=== PATIENT | male | born 1995 | race Caucasian/White ===

== ENCOUNTER 2020-09-27 15:30 | Outpatient (RCR) | payer BC, MEDICAID, SELFPAY ==
[2020-09-13 14:45] VITALS: BP 125/70; PULSE 96; RESP 16; TEMP 37; BMI 25.9
--- NOTE | 2020-09-13 16:29 | PCM.WC.HP ---
(1) Non-healing wound of right lower extremity Status: Acute Code(s): S81.801A - Unspecified open wound, right lower leg, initial encounter (2) ADHD Status: Acute Code(s): F90.9 - Attention-deficit hyperactivity disorder, unspecified type (3) Insomnia Status: Acute Code(s): G47.00 - Insomnia, unspecified (4) Autism Status: Acute Code(s): F84.0 - Autistic disorder History of Present Illness Date of Service: 09/13/20 Chief Complaint: Non-healing wounds of the R posterior thigh and the R posterior distal calf from a dog bite on 08/22/20. History of Wound: He was bitten by a pit bull on 08/22/20 and sustained wounds on the R posterior thigh and the R posterior calf. They were sutured but, the wound over the calf dehisced and has become infected. They are currently doing wet-to-dry dressings. He was seen by his primary care physician yesterday who started him on antibiotics that include Bactrim and clindamycin. He denies fever/chills/redness of the wound. His mother states that there has been increased yellow discharge recently. He had a culture of the wound taken yesterday at his PCP's office prior to starting the antibiotics. Past Medical History Surgical History: noncontributory Allergies/Adverse Reactions: Allergies red dye Adverse Reaction (Verified 09/13/20 15:18) PT UNSURE OF REACTION Home Medications: Ambulatory Orders Medication Instructions Recorded Ascorbic Acid [Vitamin C] 500 mg PO DAILY 09/13/20 Cholecalciferol (Vitamin D3) 5,000 unit PO DAILY 09/13/20 [Vitamin D3] Clindamycin [Cleocin] 450 mg PO TID 09/13/20 Cyanocobalamin [Vitamin B12] 100 mcg PO DAILY@0800 09/13/20 Dexmethylphenidate HCl [Focalin] 5 mg PO BID 09/13/20 Loratadine 10 mg PO DAILY 09/13/20 Smz/Tmp Ds [Bactrim Ds] 1 tab PO BID 09/13/20 Lives: With Family - his mother dresses the wound with W-D dressing BID Smoking Status: Never smoker Tobacco Use: Non-smoker Alcohol: None Drugs: None Review of Systems Constitutional: Denies: Chills, Fever Musculoskeletal: Reports: Muscle pain - The pain in the Left LE from the wounds is controlled adequately with Tylenol and Motrin. Skin: Reports: Wounds - Puncture wounds in the posterior thigh and the posterior R calf due to dog bite 08/22/20 Hematologic/ Lymphatic: Denies: Hx of blood clot - Physical Exam Vital Signs Temp Pulse Resp BP 98.6 F 96 16 125/70 H 09/13/20 14:45 09/13/20 14:45 09/13/20 14:45 09/13/20 14:45 General: Alert, Oriented x3, Cooperative, No apparent distress, Well developed, Well nourished Extremities: No edema, Capillary Refill Less than 3 Seconds, No Calf Tenderness, Peripheral Pulses Normal, - - The wounds on the L posterior thigh are puncture wounds and most have a small black scab with no surrounding edema and no DC. There is some edema of the tissue surrounding the area that was traumatized. There are 2 small superficial openings in the skin of the thigh with >60% slough Addt'l Wound Findings: There is a opening in the skin over the R posterior calf proximal to the ankle that measures 4.8 X .8 by 0.5. It has no significant rae-incisional erythema and the wound has no purulent DC. There is serous drainage. There is no odor. The wound margins are rolled under. There is beefy red granulation tissue present in the wound base along with about 25% slough. There is no undermining and no tunnelling. The slough was debrided with a curette. There is mild bleeding. Wound Measurements and Assessment WC - Nurse 1 - General Ulcer Measurement Start: 09/13/20 13:33 Freq: Status: Active Protocol: Activity Type Activity Date Activity User E-Sign Co-Sign Detail Recorded Client Recorded Date Recorded By Document 09/13/20 14:45 [facility] [id number] 09/13/20 15:05 BM 09/13/20 14:45 Wound Center Nurse 1 [Ulcer Assessment] #3- R MED POST LE -Combined with other wound No -Current Size (cm) - Length 0.5 -Current Size (cm) - Width 4.8 -Current Size (cm) - Depth 0.8 -Total Square Cm 2.40 -Date of Last Picture (Recall this 09/13/20 field) -Photo Taken Yes -Epithelialization None Present -Tunneling No -Undermining/Tunneling No -Circular Undermining No -Exudate Amt Small -Exudate Type Serosanguineous -Wound Margin Distinct, Outline Attached -Granulation Amt Large (67-100%) -Granulation Quality Red -Slough/Fibrin Yes -Necrosis Amt Small (1-33%) -Necrotic Tissue Type Adherent Slough -Texture (Rae-wound Skin Appearance) Assessed, Scarring -Moisture (Rae-wound Skin Appearance Assessed ) -Color (Rae-wound Skin Appearance) Assessed -Temperature (Rae-wound Skin No Abnormality Appearance) (Pt Warm) -Tenderness on Palpation (Rae-wound No Skin Appearance) -Ulcer Cleansing Rinsed/ Irrigated with Saline -Foul Odor after Cleansing No -Anesthetic Used 4% Lidocaine Solution #2- R MED UPPER POST THIGH CLUSTER -Combined with other wound No -Current Size (cm) - Length 7 -Current Size (cm) - Width 8 -Current Size (cm) - Depth 0.1 -Total Square Cm 56 -Date of Last Picture (Recall this 09/13/20 field) -Photo Taken Yes -Epithelialization None Present -Tunneling No -Undermining/Tunneling No -Circular Undermining No -Exudate Amt Small -Exudate Type Serosanguineous -Wound Margin Distinct, Outline Attached -Granulation Amt Small (1-33%) -Granulation Quality Red -Slough/Fibrin Yes -Necrosis Amt Large (67-100%) -Necrotic Tissue Type Adherent Slough -Texture (Rae-wound Skin Appearance) Assessed, Scarring -Moisture (Rae-wound Skin Appearance Assessed ) -Color (Rae-wound Skin Appearance) Assessed -Temperature (Rae-wound Skin No Abnormality Appearance) (Pt Warm) -Tenderness on Palpation (Rae-wound No Skin Appearance) -Ulcer Cleansing SOAPY WATER -Foul Odor after Cleansing No -Anesthetic Used 4% Lidocaine Solution #1- R LAT UPPER POST THIGH CLUSTER -Combined with other wound No -Current Size (cm) - Length 3.5 -Current Size (cm) - Width 4 -Current Size (cm) - Depth 0.1 -Total Square Cm 14.0 -Date of Last Picture (Recall this 09/13/20 field) -Photo Taken Yes -Epithelialization None Present -Tunneling No -Undermining/Tunneling No -Circular Undermining No -Exudate Amt Small -Exudate Type Serosanguineous -Wound Margin Distinct, Outline Attached -Granulation Amt Large (67-100%) -Granulation Quality Red -Slough/Fibrin Yes -Necrosis Amt Small (1-33%) -Necrotic Tissue Type Adherent Slough -Texture (Rae-wound Skin Appearance) Assessed, Scarring -Moisture (Rae-wound Skin Appearance Assessed ) -Color (Rae-wound Skin Appearance) Assessed -Temperature (Rae-wound Skin No Abnormality Appearance) (Pt Warm) -Tenderness on Palpation (Rae-wound No Skin Appearance) -Ulcer Cleansing Rinsed/ Irrigated with Saline -Foul Odor after Cleansing No -Anesthetic Used 4% Lidocaine Solution WC - Nurse 3 - General Ulcer D/C NN Start: 09/13/20 13:33 Freq: Status: Active Protocol: Activity Type Activity Date Activity User E-Sign Co-Sign Detail Recorded Client Recorded Date Recorded By Document 09/13/20 15:41 [facility] [id number] 09/13/20 15:43 [facility] 09/13/20 15:41 Wound Care Nurse 3 [Wound Dressing] #3- R MED POST LE -Ulcer Cleansing Rinsed/ Irrigated with Saline -Foul Odor after Cleansing No -Primary Dressing Applied Other -Other Dressing MOIST TO DRY -Primary Dressing Covered/Secured Dry Gauze & with Roll Gauze, Secured with Tape,Other -Other Covering ABD #2- R MED UPPER POST THIGH CLUSTER -Ulcer Cleansing Rinsed/ Irrigated with Saline -Foul Odor after Cleansing No -Primary Dressing Applied Other -Other Dressing MOIST TOT DRY -Primary Dressing Covered/Secured Dry Gauze & with Roll Gauze, Secured with Tape,Other -Other Covering ABD #1- R LAT UPPER POST THIGH CLUSTER -Ulcer Cleansing Rinsed/ Irrigated with Saline -Foul Odor after Cleansing No -Primary Dressing Applied Other -Other Dressing MOIST TO DRY -Primary Dressing Covered/Secured Dry Gauze & with Roll Gauze, Secured with Tape,Other -Other Covering ABD [Post Procedure Tolerated] -Treatment Response Procedure Tolerated Well Pain Scale: 0-10 Numeric [Pain] -Is Patient Pain Free? Yes WC - Visit Discharge [Visit Discharge Information] -Discharge Condition Stable -Ambulatory Status Ambulatory -Transportation Private Auto -Accompanied by Debridement Note Post-Debridement Measurements/Treatment WC - Nurse 3 - General Ulcer D/C NN Start: 09/13/20 13:33 Freq: Status: Active Protocol: Activity Type Activity Date Activity User E-Sign Co-Sign Detail Recorded Client Recorded Date Recorded By Document 09/13/20 15:41 [facility] [id number] 09/13/20 15:43 [facility] 09/13/20 15:41 Wound Care Nurse 3 #3- R MED POST LE -Ulcer Cleansing Rinsed/ Irrigated with Saline -Foul Odor after Cleansing No -Primary Dressing Applied Other -Other Dressing MOIST TO DRY -Primary Dressing Covered/Secured with Dry Gauze & Roll Gauze, Secured with Tape,Other -Other Covering ABD #2- R MED UPPER POST THIGH CLUSTER -Ulcer Cleansing Rinsed/ Irrigated with Saline -Foul Odor after Cleansing No -Primary Dressing Applied Other -Other Dressing MOIST TOT DRY -Primary Dressing Covered/Secured with Dry Gauze & Roll Gauze, Secured with Tape,Other -Other Covering ABD #1- R LAT UPPER POST THIGH CLUSTER -Ulcer Cleansing Rinsed/ Irrigated with Saline -Foul Odor after Cleansing No -Primary Dressing Applied Other -Other Dressing MOIST TO DRY -Primary Dressing Covered/Secured with Dry Gauze & Roll Gauze, Secured with Tape,Other -Other Covering ABD Treatment Response Procedure Tolerated Well Pain Scale: 0-10 Numeric Is Patient Pain Free? Yes WC - Visit Discharge Discharge Condition Stable Ambulatory Status Ambulatory Transportation Private Auto Accompanied by Wound debrided: R posterior thigh - 2 small superficial wounds Laterality: Right Wound Grade/Stage: into the subcutaneous tissue. No tendon/ligament exposed Type of Debridement: Selective debridement Anesthesia Used: 4% Lidocaine Solution Depth: Down to and including healthy tissue, in the subcutaneous layer Percentage of wound debrided: 100 Instrument Used: 5mm curette Severity: Limited To Skin Breakdown Amount of bleeding with debridement: Mild Bleeding Controlled with: Pressure Patient tolerated procedure well Operative Diagnosis: non-healing wounds due to dog bite - Additional Wound Wound debrided: R posterior calf wound proximal to the ankle Laterality: Right Wound Grade/Stage: wound extends into the fat layer Type of Debridement: Selective debridement Anesthesia Used: 4% Lidocaine Solution Depth: Down to and including healthy tissue, in the subcutaneous layer Percentage of wound debrided: 100 Instrument Used: 5mm curette Severity: Fat Layer Exposed Amount of bleeding with debridement: Mild Bleeding Controlled with: Pressure, Compression and gauze Patient tolerated procedure: Patient tolerated procedure well Operative Diagnosis: non-healing wound due to dog bite on 08/22/20 with subsequent dehiscence Assessment/Plan Assessment: 1. Non- healing wounds of the R posterior thigh and the R posterior calf sustained when a pitbull bite him on 08/22/20. The wound of the calf was sutured in the ER and he was placed on antibiotics.m The wound subsequently dehisced and has been non-healing. 2. superficial infection of the open wound over the calf. Started on antibiotics by PCP and the wound was cultured on 09/12/20. 3. superficial non-healing puncture wounds (2) over the posterior thigh. other puncture wounds are healing. Plan: 1. COntinue W-D dressings for now. 2. Obtain the results of the cultures done yesterday at the PCP office. 3. Continue Clindamycin and Bactrim RX's by PCP. 4. RTC in 1 week and considerdebriding the edges that are rolled under to promote epithelialization and consider transitioning to a alginate containing collagen if infection has resolved. Office Visits / Consults: [id number] OV L3 New
[2020-09-20 14:39] VITALS: BP 117/70; PULSE 104; RESP 18; TEMP 36.6; BMI 25.9
--- NOTE | 2020-09-20 15:29 | PCM.WC.PN ---
(1) Non-healing wound of right lower extremity Status: Acute Code(s): S81.801A - Unspecified open wound, right lower leg, initial encounter (2) ADHD Status: Chronic Code(s): F90.9 - Attention-deficit hyperactivity disorder, unspecified type (3) Insomnia Status: Chronic Code(s): G47.00 - Insomnia, unspecified (4) Autism Status: Chronic Code(s): F84.0 - Autistic disorder (5) Cellulitis Status: Resolved Qualifiers: Site of cellulitis: extremity Site of cellulitis of extremity: lower extremity Laterality: right Qualified Code(s): L03.115 - Cellulitis of right lower limb Code(s): L03.90 - Cellulitis, unspecified Comment: culture reportedly + for pseudomonas. We did not receive the culture repost from PCP. (6) Folliculitis Status: Acute Code(s): L73.9 - Follicular disorder, unspecified Type of Wound Date of Service: 09/20/20 Chief Complaint: Non-healing wounds of the R posterior thigh and the R posterior distal calf from a dog bite on 08/22/20. History of Wound: He was bitten by a pit bull on 08/22/20 and sustained wounds on the R posterior thigh and the R posterior calf. They were sutured but, the wound over the calf dehisced and has become infected. They are currently doing wet-to-dry dressings. He was seen by his primary care physician yesterday who started him on antibiotics that include Bactrim and clindamycin. He denies fever/chills/redness of the wound. His mother states that there has been increased yellow discharge recently. He had a culture of the wound taken yesterday at his PCP's office prior to starting the antibiotics. Progress of Wound: Immanuel denies F/C/S. No N/V/D related to the antibiotic. Currently being dressed with W to D dressing. Dimensions of the wound R distal LE have significantly decreased, ryan in the depth and the width. He denies more than mild pain. The scabs on the posterior of the R thigh are still present....there are multiple. There are 2 small wounds that are open but very superficial. - Physical Exam Vital Signs Temp Pulse Resp BP 97.8 F 104 H 18 117/70 09/20/20 14:39 09/20/20 14:39 09/20/20 14:39 09/20/20 14:39 General: Alert, Oriented x3, Cooperative, No apparent distress, Well developed, Well nourished Extremities: Peripheral Pulses Normal Skin: - - he has multiple small punctate red pustules at the site of hair follicles extending from the ankles to the groinn BL. There are a very few with white heads. Wound Measurements and Assessment WC - Nurse 1 - General Ulcer Measurement Start: 09/13/20 13:33 Freq: Status: Active Protocol: Activity Type Activity Date Activity User E-Sign Co-Sign Detail Recorded Client Recorded Date Recorded By Document 09/20/20 14:39 DL [id number] 09/20/20 14:52 DL 09/20/20 14:39 Wound Center Nurse 1 [Ulcer Assessment] #3- R MED POST LE -Current Size (cm) - Length 9 -Current Size (cm) - Width 3.6 -Current Size (cm) - Depth 0.3 -Total Square Cm 32.4 -Photo Taken No -Exudate Amt Small -Exudate Type Serosanguineous -Wound Margin Distinct, Outline Attached -Granulation Amt Large (67-100%) -Granulation Quality Red -Necrosis Amt None Present (0 %) -Structure Exposed N/A -Texture (Laura-wound Skin Appearance) Scarring -Moisture (Laura-wound Skin Appearance No Abnormality ) -Color (Laura-wound Skin Appearance) No Abnormality -Temperature (Laura-wound Skin No Abnormality Appearance) (Pt Warm) -Tenderness on Palpation (Laura-wound No Skin Appearance) -Ulcer Cleansing Rinsed/ Irrigated with Saline -Foul Odor after Cleansing No -Anesthetic Used 4% Lidocaine Solution #2- R MED UPPER POST THIGH CLUSTER -Current Size (cm) - Length 2 -Current Size (cm) - Width 2 -Current Size (cm) - Depth 0.1 -Total Square Cm 4 -Photo Taken No -Exudate Amt None Present -Wound Margin Thickened -Granulation Amt Small (1-33%) -Granulation Quality [place] -Necrosis Amt Small (1-33%) -Necrotic Tissue Type Eschar -Structure Exposed N/A -Texture (Laura-wound Skin Appearance) Scarring -Moisture (Laura-wound Skin Appearance No Abnormality ) -Color (Laura-wound Skin Appearance) No Abnormality -Temperature (Laura-wound Skin No Abnormality Appearance) (Pt Warm) -Tenderness on Palpation (Laura-wound No Skin Appearance) -Ulcer Cleansing Rinsed/ Irrigated with Saline -Foul Odor after Cleansing No -Anesthetic Used 4% Lidocaine Solution #1- R LAT UPPER POST THIGH CLUSTER -Current Size (cm) - Length 3.3 -Current Size (cm) - Width 2.5 -Current Size (cm) - Depth 0.1 -Total Square Cm 8.25 -Photo Taken No -Exudate Amt None Present -Wound Margin Thickened -Granulation Amt Small (1-33%) -Granulation Quality [place] -Necrosis Amt Small (1-33%) -Necrotic Tissue Type Eschar -Structure Exposed N/A -Texture (Laura-wound Skin Appearance) Scarring -Moisture (Laura-wound Skin Appearance Dry/Scaly ) -Color ([place]-wound Skin Appearance) No Abnormality -Temperature (Laura-wound Skin No Abnormality Appearance) (Pt Warm) -Tenderness on Palpation (Laura-wound No Skin Appearance) -Ulcer Cleansing Rinsed/ Irrigated with Saline -Foul Odor after Cleansing No -Anesthetic Used 4% Lidocaine Solution - Nurse 3 - General Ulcer D/C NN Start: 09/13/20 13:33 Freq: Status: Active Protocol: Activity Type Activity Date Activity User E-Sign Co-Sign Detail Recorded Client Recorded Date Recorded By Document 09/20/20 15:14 [facility] [id number] 09/20/20 15:16 [facility] 09/20/20 15:14 Wound Care Nurse 3 [Wound Dressing] #3- R MED POST LE -Ulcer Cleansing Rinsed/ Irrigated with Saline -Foul Odor after Cleansing No -Primary Dressing Applied Promogran -Primary Dressing Covered/Secured Dry Gauze & with Roll Gauze, Secured with Tape -Promogran 1 #2- R MED UPPER POST THIGH CLUSTER -Primary Dressing Applied Other -Other Dressing LOTA #1- R LAT UPPER POST THIGH CLUSTER -Primary Dressing Applied Other -Other Dressing LOTA [Post Procedure Tolerated] -Treatment Response Procedure Tolerated Well Pain Scale: 0-10 Numeric [Pain] -Is Patient Pain Free? Yes - Visit Discharge [Visit Discharge Information] -Discharge Condition Stable -Ambulatory Status Ambulatory -Transportation Private Auto -Accompanied by MOTHER Above was reviewed. The laceration of the distal RLE just proximal to the Achilles tendon is healing. There is no slough today and no purulent DC. He has some serous DC when his mom changes the dressing. There is no laura-wound erythema and no purulent DC noted. there is no odor. There is no significant edema around the wound. The margins of the wound do not appear to be rolled under since the swelling has decreased. No pain with palpation over the Achilles. He has good dorsiflexion and plantar flexion of the R ankle with no pain. The base is 100% beefy granulation tissue. It is filling in from the bottom nicely. The puncture wounds of the R posterior thigh are all scabbed except for 2 very small superficial openings. There is significantly less edema around the puncture sites than last week. No erythema, no purulent DC and no increased warmth to touch. No need to debride wounds today. Debridement Note Post-Debridement Measurements/Treatment WC - Nurse 2 - General Ulcer CM Notes Start: 09/13/20 13:33 Freq: Status: Active Protocol: Activity Type Activity Date Activity User E-Sign Co-Sign Detail Recorded Client Recorded Date Recorded By Document 09/13/20 16:58 PL [id number] 09/13/20 16:59 PL 09/13/20 16:58 Wound Center Nurse 2 #3- R MED POST LE -Time 15:25 -Correct Patient Yes -Correct Side, Site, Position Yes -Correct Procedure Yes -Procedure Performed Yes -Type of Procedure Debridement -Clinical Debridement Subcutaneous -Tissue Removed Dermis, Subcutaneous -Post Debridement (cm) - Length 0.5 -Post Debridement (cm) - Width 4.8 -Post Debridement (cm) - Depth 0.8 -Total Square (Post) (cm) 2.40 -Area of Debridement (cm) - Length 0.5 -Area of Debridement (cm) - Width 4.8 -Total Square (Area) (cm) 2.40 -Tunneling No -Undermining/Tunneling No -Circular Undermining No -Wound/Ulcer Outcome Not Healed -Ulcer Cleansing Rinsed/ Irrigated with Saline -Foul Odor after Cleansing No -Bioengineered Tissue No -Debridement - Subq, 1st 20sq cm Yes #2- R MED UPPER POST THIGH CLUSTER -Procedure Performed No #1- R LAT UPPER POST THIGH CLUSTER -Procedure Performed No Pain Scale: 0-10 Numeric Is Patient Pain Free? Yes ANAND - Nurse 3 - General Ulcer D/C NN Start: 09/13/20 13:33 Freq: Status: Active Protocol: Activity Type Activity Date Activity User E-Sign Co-Sign Detail Recorded Client Recorded Date Recorded By Document 09/13/20 15:41 [facility] [id number] 09/13/20 15:43 [facility] Document 09/20/20 15:14 [facility] [id number] 09/20/20 15:16 [facility] 09/13/20 09/20/20 15:41 15:14 Wound Care Nurse 3 #3- R MED POST LE -Ulcer Cleansing Rinsed/ Rinsed/ Irrigated with Irrigated with Saline Saline -Foul Odor after Cleansing No No -Primary Dressing Applied Other Promogran -Other Dressing MOIST TO DRY -Primary Dressing Covered/Secured with Dry Gauze & Dry Gauze & Roll Gauze, Roll Gauze, Secured with Secured with Tape,Other Tape -Other Covering ABD -Promogran 1 #2- R MED UPPER POST THIGH CLUSTER -Ulcer Cleansing Rinsed/ Irrigated with Saline -Foul Odor after Cleansing No -Primary Dressing Applied Other Other -Other Dressing MOIST TOT DRY LOTA -Primary Dressing Covered/Secured with Dry Gauze & Roll Gauze, Secured with Tape,Other -Other Covering ABD #1- R LAT UPPER POST THIGH CLUSTER -Ulcer Cleansing Rinsed/ Irrigated with Saline -Foul Odor after Cleansing No -Primary Dressing Applied Other Other -Other Dressing MOIST TO DRY LOTA -Primary Dressing Covered/Secured with Dry Gauze & Roll Gauze, Secured with Tape,Other -Other Covering ABD Treatment Response Procedure Procedure Tolerated Well Tolerated Well Pain Scale: 0-10 Numeric Is Patient Pain Free? Yes Yes WC - Visit Discharge Discharge Condition Stable Stable Ambulatory Status Ambulatory Ambulatory Transportation Private Auto Private Auto Accompanied by MOTHER No debridement was completed today Assessment/Plan Active Problems Non-healing wound of right lower extremity (Acute) ADHD (Chronic) Insomnia (Chronic) Autism (Chronic) Assessment: 1. Non- healing wounds of the R posterior thigh and the R posterior calf sustained when a pitbull bit him on 08/22/20. The wound of the calf was sutured in the ER and he was placed on antibiotics. The wound subsequently dehisced and has been non-healing since then despite tx with antibiotics. The wound culture grew Pseudomonas which I suspect represented colonization rather than infection......possibly related to wet to dry dressings. Today the wound is decreased in both depth and width. There is 100% granulation tissue in the wound base. 2. superficial infection/colonization of the open wound over the calf. Started on antibiotics by PCP and the wound was cultured on 09/12/20. the culture grew Pseudomonas. 3. superficial non-healing puncture wounds (2) over the posterior thigh. other puncture wounds are healing. Edema is less today. 4. folliculitis of the BL LE's from the ankle to the groin with multiple small red pimples/pustules present. None appear to be infected. Plan: 1. DC the wet to dry dressings. start a collagen base dressing (Promogran) without silver today and recheck in 1 week. 2. Obtain the results of the cultures done PCP office. 3. He finished Bactrim and clindamycin - interestingly neither of thes meds covers the pseudomonas that grew on culture....I suspect the pseudomonas was due to colonization in a wound getting wet to dry dressings.......staying too moist. 4. Hibiclens shower daily for 5 days to decrease the bacteria count on the skin causing the folliculitis. 4. RTC in 1 week and considerdebriding the edges that are rolled under to promote epithelialization and consider transitioning to a alginate containing collagen if infection has resolved. Office Visits / Consults: [id number] OV L2 Est
[2020-09-27 15:41] VITALS: BP 114/67; PULSE 95; TEMP 36.4; BMI 25.9
--- NOTE | 2020-09-27 20:05 | PN.PCM_ITS ---
(1) Non-healing wound of right lower extremity Status: Acute Code(s): S81.801A - Unspecified open wound, right lower leg, initial encounter (2) ADHD Status: Chronic Code(s): F90.9 - Attention-deficit hyperactivity disorder, unspecified type (3) Insomnia Status: Chronic Code(s): G47.00 - Insomnia, unspecified (4) Autism Status: Chronic Code(s): F84.0 - Autistic disorder (5) Cellulitis Status: Resolved Qualifiers: Site of cellulitis: extremity Site of cellulitis of extremity: lower extremity Laterality: right Qualified Code(s): L03.115 - Cellulitis of right lower limb Code(s): L03.90 - Cellulitis, unspecified Comment: culture reportedly + for pseudomonas. We did not receive the culture repost from PCP. (6) Folliculitis Status: Resolved Code(s): L73.9 - Follicular disorder, unspecified Type of Wound Date of Service: 09/27/20 Chief Complaint: Non-healing wounds of the R posterior thigh and the R posterior distal calf from a dog bite on 08/22/20. History of Wound: He was bitten by a pit bull on 08/22/20 and sustained wounds on the R posterior thigh and the R posterior calf. They were sutured but, the wound over the calf dehisced and has become infected. They are currently doing wet-to-dry dressings. He was seen by his primary care physician yesterday who started him on antibiotics that include Bactrim and clindamycin. He denies fever/chills/redness of the wound. His mother states that there has been increased yellow discharge recently. He had a culture of the wound taken yesterday at his PCP's office prior to starting the antibiotics. Progress of Wound: Immanuel denies F/C/S. No N/V/D related to the antibiotic. HE has taken a Hibiclens shower 3 times. The folliculitis of the BL LE's is much less. He denies pain of the LLE. Using Promogran on the wound proximal to the ankle on RLE. - Physical Exam Vital Signs Temp Pulse Resp BP 97.6 F L 95 18 114/67 09/27/20 15:41 09/27/20 15:41 09/20/20 14:39 09/27/20 15:41 General: Alert, Oriented x3, Cooperative, No apparent distress Lungs: Clear to auscultation Cardiovascular: Regular rate, Regular Rhythm Wound Measurements and Assessment WC - Nurse 1 - General Ulcer Measurement Start: 09/13/20 13:33 Freq: Status: Active Protocol: Activity Type Activity Date Activity User E-Sign Co-Sign Detail Recorded Client Recorded Date Recorded By Document 09/27/20 15:41 KR [id number] 09/27/20 15:49 LILA 09/27/20 15:41 Wound Center Nurse 1 [Ulcer Assessment] #3- R MED POST LE -Current Size (cm) - Length 1.1 -Current Size (cm) - Width 3.9 -Current Size (cm) - Depth 0.2 -Total Square Cm 4.29 -Exudate Amt Small -Exudate Type Serosanguineous -Wound Margin Distinct, Outline Attached -Granulation Amt Medium (34-66%) -Granulation Quality Red -Necrosis Amt Medium (34-66%) -Necrotic Tissue Type Adherent Slough -Texture (Laura-wound Skin Appearance) Assessed, Scarring -Moisture (Laura-wound Skin Appearance No Abnormality, ) Assessed -Color (Laura-wound Skin Appearance) No Abnormality, Assessed -Temperature (Laura-wound Skin No Abnormality Appearance) (Pt Warm) -Ulcer Cleansing Rinsed/ Irrigated with Saline -Foul Odor after Cleansing No -Anesthetic Used 4% Lidocaine Solution #2- R MED UPPER POST THIGH CLUSTER -Current Size (cm) - Length 0.1 -Current Size (cm) - Width 0.1 -Current Size (cm) - Depth 0.1 -Total Square Cm 0.01 -Exudate Amt None Present -Wound Margin Distinct, Outline Attached -Granulation Amt None Present (0 %) -Necrosis Amt None Present (0 %) -Texture (Laura-wound Skin Appearance) Assessed, Scarring -Moisture (Laura-wound Skin Appearance No Abnormality, ) Assessed -Color (Laura-wound Skin Appearance) No Abnormality, Assessed -Temperature (Laura-wound Skin No Abnormality Appearance) (Pt Warm) -Tenderness on Palpation (Laura-wound No Skin Appearance) -Ulcer Cleansing Rinsed/ Irrigated with Saline -Foul Odor after Cleansing No -Anesthetic Used 4% Lidocaine Solution #1- R LAT UPPER POST THIGH CLUSTER -Current Size (cm) - Length 0.1 -Current Size (cm) - Width 0.1 -Current Size (cm) - Depth 0.1 -Total Square Cm 0.01 -Exudate Amt None Present -Wound Margin Distinct, Outline Attached -Granulation Amt None Present (0 %) -Necrosis Amt None Present (0 %) -Texture (Laura-wound Skin Appearance) Assessed, Scarring -Moisture (Laura-wound Skin Appearance No Abnormality, ) Assessed -Color (Laura-wound Skin Appearance) No Abnormality, Assessed -Temperature (Laura-wound Skin No Abnormality Appearance) (Pt Warm) -Tenderness on Palpation (Laura-wound No Skin Appearance) -Ulcer Cleansing Rinsed/ Irrigated with Saline -Foul Odor after Cleansing No -Anesthetic Used 4% Lidocaine Solution - Nurse 2 - General Ulcer CM Notes Start: 09/13/20 13:33 Freq: Status: Active Protocol: Activity Type Activity Date Activity User E-Sign Co-Sign Detail Recorded Client Recorded Date Recorded By Document 09/27/20 18:01 [id number] 09/27/20 18:02 09/27/20 18:01 Wound Center Nurse 2 [Procedure/Treatment] #3- R MED POST LE -Procedure Performed No -Wound/Ulcer Outcome Not Healed [See Physician Procedure note for Specifics] Pain Scale: 0-10 Numeric [Pain] -Is Patient Pain Free? Yes - Nurse 3 - General Ulcer D/C NN Start: 09/13/20 13:33 Freq: Status: Active Protocol: Activity Type Activity Date Activity User E-Sign Co-Sign Detail Recorded Client Recorded Date Recorded By Document 09/27/20 16:00 [id number] 09/27/20 16:04 KR 09/27/20 16:00 Wound Care Nurse 3 [Wound Dressing] #3- R MED POST LE -Ulcer Cleansing Rinsed/ Irrigated with Saline -Foul Odor after Cleansing No -Primary Dressing Applied Promogran -Primary Dressing Covered/Secured Dry Gauze, with Secured with Tape -Promogran 1 Pain Scale: 0-10 Numeric [Pain] -Is Patient Pain Free? Yes - Visit Discharge [Visit Discharge Information] -Discharge Condition Stable -Ambulatory Status Ambulatory -Transportation Private Auto -Accompanied by mom The wound on the R posterior calf proximal to the ankle is filling in and is more superficial now with decreased depth. There is epithelialization occuring now. there is no purulent DC and no odor. There is no laura-wound erythema and no increased warmth to touch. Folliculitis is much better with the institution of Hibiclens showers. No significant slough. The margins are not undermined and they are not rolled under. No debridement necessary. Musculoskeletal: No Muscle Wasting Debridement Note Post-Debridement Measurements/Treatment WC - Nurse 2 - General Ulcer CM Notes Start: 09/13/20 13:33 Freq: Status: Active Protocol: Activity Type Activity Date Activity User E-Sign Co-Sign Detail Recorded Client Recorded Date Recorded By Document 09/13/20 16:58 PL [id number] 09/13/20 16:59 PL Document 09/27/20 18:01 PL [id number] 09/27/20 18:02 PL 09/13/20 09/27/20 16:58 18:01 Wound Center Nurse 2 #3- R MED POST LE -Time 15:25 -Correct Patient Yes -Correct Side, Site, Position Yes -Correct Procedure Yes -Procedure Performed Yes No -Type of Procedure Debridement -Clinical Debridement Subcutaneous -Tissue Removed Dermis, Subcutaneous -Post Debridement (cm) - Length 0.5 -Post Debridement (cm) - Width 4.8 -Post Debridement (cm) - Depth 0.8 -Total Square (Post) (cm) 2.40 -Area of Debridement (cm) - Length 0.5 -Area of Debridement (cm) - Width 4.8 -Total Square (Area) (cm) 2.40 -Tunneling No -Undermining/Tunneling No -Circular Undermining No -Wound/Ulcer Outcome Not Healed Not Healed -Ulcer Cleansing Rinsed/ Irrigated with Saline -Foul Odor after Cleansing No -Bioengineered Tissue No -Debridement - Subq, 1st 20sq cm Yes #2- R MED UPPER POST THIGH CLUSTER -Procedure Performed No #1- R LAT UPPER POST THIGH CLUSTER -Procedure Performed No Pain Scale: 0-10 Numeric Is Patient Pain Free? Yes Yes ANAND - Nurse 3 - General Ulcer D/C NN Start: 09/13/20 13:33 Freq: Status: Active Protocol: Activity Type Activity Date Activity User E-Sign Co-Sign Detail Recorded Client Recorded Date Recorded By Document 09/13/20 15:41 [facility] [id number] 09/13/20 15:43 [facility] Document 09/20/20 15:14 [facility] [id number] 09/20/20 15:16 [facility] Document 09/27/20 16:00 KR [id number] 09/27/20 16:04 KR 09/13/20 09/20/20 09/27/20 15:41 15:14 16:00 Wound Care Nurse 3 #3- R MED POST LE -Ulcer Cleansing Rinsed/ Rinsed/ Rinsed/ Irrigated with Irrigated with Irrigated with Saline Saline Saline -Foul Odor after Cleansing No No No -Primary Dressing Applied Other Promogran Promogran -Other Dressing MOIST TO DRY -Primary Dressing Covered/Secured with Dry Gauze & Dry Gauze & Dry Gauze, Roll Gauze, Roll Gauze, Secured with Secured with Secured with Tape Tape,Other Tape -Other Covering ABD -Promogran 1 1 #2- R MED UPPER POST THIGH CLUSTER -Ulcer Cleansing Rinsed/ Irrigated with Saline -Foul Odor after Cleansing No -Primary Dressing Applied Other Other -Other Dressing MOIST TOT DRY LOTA -Primary Dressing Covered/Secured with Dry Gauze & Roll Gauze, Secured with Tape,Other -Other Covering ABD #1- R LAT UPPER POST THIGH CLUSTER -Ulcer Cleansing Rinsed/ Irrigated with Saline -Foul Odor after Cleansing No -Primary Dressing Applied Other Other -Other Dressing MOIST TO DRY LOTA -Primary Dressing Covered/Secured with Dry Gauze & Roll Gauze, Secured with Tape,Other -Other Covering ABD Treatment Response Procedure Procedure Tolerated Well Tolerated Well Pain Scale: 0-10 Numeric Is Patient Pain Free? Yes Yes Yes WC - Visit Discharge Discharge Condition Stable Stable Stable Ambulatory Status Ambulatory Ambulatory Ambulatory Transportation Private Auto Private Auto Private Auto Accompanied by MOTHER mom No debridement was completed today Assessment/Plan Active Problems Non-healing wound of right lower extremity (Acute) ADHD (Chronic) Insomnia (Chronic) Autism (Chronic) Assessment: 1. Non- healing wounds of the R posterior thigh and the R posterior calf sustained when a pitbull bit him on 08/22/20. The wound of the calf was sutured in the ER and he was placed on antibiotics. The wound subsequently dehisced and has been non-healing since then despite tx with antibiotics. The wound culture grew Pseudomonas which I suspect represented colonization rather than infection......possibly related to wet to dry dressings. The wound is has less depth and it now has epitelialization present. 2. superficial infection/ colonization of the open wound over the calf. Started on antibiotics by PCP and the wound was cultured on 09/12/20. the culture grew Pseudomonas. 3. superficial non-healing puncture wounds (2) over the posterior thigh. other puncture wounds are healing. Edema is less today. the skin is softer and more pliable. 4. folliculitis of the BL LE's from the ankle to the groin with multiple small red pimples/pustules present. None appear to be infected. Good improvement with Hibiclens showers. Plan: 1. Continue the Promogran. 2. continue showering with Hibiclens. 3. RTC in 1-2 weeks for recheck. Office Visits / Consults: [id number] OV L2 Est
== END 2020-09-29 23:59 ==
LOC: WC 15:30
PROVIDERS: PCP Nurse Practitioner Primary Care; Referring Provider Nurse Practitioner Primary Care; Visit Provider Internal Medicine
DX: S81.851A Open bite, right lower leg, initial encounter (principal); W54.0XXA Bitten by dog, initial encounter; Y93.9 Activity, unspecified; F90.9 Attention-deficit hyperactivity disorder, unspecified type; F84.0 Autistic disorder; Z79.899 Other long term (current) drug therapy; S71.151A Open bite, right thigh, initial encounter; L03.115 Cellulitis of right lower limb; B96.5 Pseudomonas (aeruginosa) (mallei) (pseudomallei) as the cause of diseases classified elsewhere; L73.9 Follicular disorder, unspecified
CPT/HCPCS: 11042; 99212; 99213; G0463

== ENCOUNTER 2020-10-18 14:45 | Outpatient (RCR) | payer MEDICAID, SELFPAY ==
[2020-09-30 00:40] VITALS: BP 114/67; PULSE 95; RESP 18; TEMP 36.4
[2020-10-04 15:11] VITALS: BP 129/81; PULSE 94; RESP 16; TEMP 36.3; BMI 25.9
--- NOTE | 2020-10-04 16:47 | PN.PCM_ITS ---
(1) Animal bite wound Status: Acute Code(s): T14.8XXA - Other injury of unspecified body region, initial encounter Type of Wound Date of Service: 10/13/20 Chief Complaint: Non-healing wounds of the R posterior thigh and the R posterior distal calf from a dog bite on 08/22/20. History of Wound: He was bitten by a pit bull on 08/22/20 and sustained wounds on the R posterior thigh and the R posterior calf. They were sutured but, the wound over the calf dehisced and has become infected. They are currently doing wet-to-dry dressings. He was seen by his primary care physician yesterday who started him on antibiotics that include Bactrim and clindamycin. He denies fever/chills/redness of the wound. His mother states that there has been increased yellow discharge recently. He had a culture of the wound taken yesterday at his PCP's office prior to starting the antibiotics. Progress of Wound: Immanuel denies F/C/S. No N/V/D related to the antibiotic. HE has taken a Hibiclens shower 3 times. The folliculitis of the BL LE's is much less. He denies pain of the LLE. Using Promogran on the wound proximal to the ankle on RLE. Subjective: He denies F/C/Sweats/pain in the R ankle/achilles area. He has no N/V/Abd pain. Mother has been changing the dressings daily with Promogran. - Physical Exam Vital Signs Temp Pulse Resp BP 97.3 F L 94 16 129/81 H 10/04/20 15:11 10/04/20 15:11 10/04/20 15:11 10/04/20 15:11 General: Alert, Oriented x3, No apparent distress, Well developed, Well nourished Skin: - - he still has small areas of folliculitis over the LE's but there is no evidence of infection. the wounds on the upper posterior R thigh are healed. There is some hyperpigmentation there. Wound Measurements and Assessment WC - Nurse 1 - General Ulcer Measurement Start: 10/04/20 15:08 Freq: Status: Active Protocol: Activity Type Activity Date Activity User E-Sign Co-Sign Detail Recorded Client Recorded Date Recorded By Document 01/05/21 15:11 DL [id number] 10/04/20 15:15 DL 10/04/20 15:11 Wound Center Nurse 1 [Ulcer Assessment] #3- R MED POST LE -Current Size (cm) - Length 0.8 -Current Size (cm) - Width 3 -Current Size (cm) - Depth 0.1 -Total Square Cm 2.4 -Photo Taken No -Exudate Amt Small -Exudate Type Serosanguineous -Wound Margin Distinct, Outline Attached -Granulation Amt Large (67-100%) -Granulation Quality Red -Necrosis Amt Small (1-33%) -Necrotic Tissue Type Adherent Slough -Structure Exposed N/A -Texture (Laura-wound Skin Appearance) Scarring -Moisture (Laura-wound Skin Appearance No Abnormality ) -Color (Laura-wound Skin Appearance) No Abnormality -Temperature (Laura-wound Skin No Abnormality Appearance) (Pt Warm) -Tenderness on Palpation (Laura-wound No Skin Appearance) -Ulcer Cleansing Rinsed/ Irrigated with Saline -Foul Odor after Cleansing No -Anesthetic Used 4% Lidocaine Solution WC - Nurse 2 - General Ulcer CM Notes Start: 10/04/20 15:08 Freq: Status: Active Protocol: Activity Type Activity Date Activity User E-Sign Co-Sign Detail Recorded Client Recorded Date Recorded By Document 10/04/20 15:56 PL [id number] 10/04/20 15:57 PL 10/04/20 15:56 Wound Center Nurse 2 [Procedure/Treatment] -Time 15:23 -Correct Patient Yes -Correct Side, Site, Position Yes -Correct Procedure Yes -Procedure Performed Yes -Type of Procedure Debridement -Clinical Debridement Subcutaneous -Tissue Removed Subcutaneous -Post Debridement (cm) - Length 0.8 -Post Debridement (cm) - Width 3 -Post Debridement (cm) - Depth 0.1 -Total Square (Post) (cm) 2.4 -Area of Debridement (cm) - Length 0.8 -Area of Debridement (cm) - Width 3 -Total Square (Area) (cm) 2.4 -Tunneling No -Undermining/Tunneling No -Circular Undermining No -Wound/Ulcer Outcome Not Healed -Ulcer Cleansing Rinsed/ Irrigated with Saline -Foul Odor after Cleansing No -Bioengineered Tissue No -Debridement - Subq, 1st 20sq cm Yes [See Physician Procedure note for Specifics] Pain Scale: 0-10 Numeric [Pain] -Is Patient Pain Free? Yes - Nurse 3 - General Ulcer D/C NN Start: 10/04/20 15:08 Freq: Status: Active Protocol: Activity Type Activity Date Activity User E-Sign Co-Sign Detail Recorded Client Recorded Date Recorded By Document 10/04/20 15:34 [facility] [id number] 10/04/20 15:34 [facility] 10/04/20 15:34 Wound Care Nurse 3 [Wound Dressing] #3- R MED POST LE -Ulcer Cleansing Rinsed/ Irrigated with Saline -Foul Odor after Cleansing No -Primary Dressing Applied Promogran -Primary Dressing Covered/Secured Dry Gauze & with Roll Gauze, Secured with Tape -Promogran 1 [Post Procedure Tolerated] -Treatment Response Procedure Tolerated Well Pain Scale: 0-10 Numeric [Pain] -Is Patient Pain Free? Yes - Visit Discharge [Visit Discharge Information] -Discharge Condition Stable -Ambulatory Status Ambulatory -Transportation Private Auto -Accompanied by mother The wound of the R distal LE continues to fill in with good granulation tissue which is now even with the skin. There is no tunnelling and no undermining. There are some dark areas of dried , nonviable tissue at some of the wound margins and this was debrided with a #15 blade and forceps. There was mild bleeding and this was controlled with pressure. He tolerated the procedure well Debridement Note Post-Debridement Measurements/Treatment - Nurse 2 - General Ulcer CM Notes Start: 10/04/20 15:08 Freq: Status: Active Protocol: Activity Type Activity Date Activity User E-Sign Co-Sign Detail Recorded Client Recorded Date Recorded By Document 10/04/20 15:56 [id number] 10/04/20 15:57 PL 10/04/20 15:56 Wound Center Nurse 2 #3- R MED POST LE -Time 15:23 -Correct Patient Yes -Correct Side, Site, Position Yes -Correct Procedure Yes -Procedure Performed Yes -Type of Procedure Debridement -Clinical Debridement Subcutaneous -Tissue Removed Subcutaneous -Post Debridement (cm) - Length 0.8 -Post Debridement (cm) - Width 3 -Post Debridement (cm) - Depth 0.1 -Total Square (Post) (cm) 2.4 -Area of Debridement (cm) - Length 0.8 -Area of Debridement (cm) - Width 3 -Total Square (Area) (cm) 2.4 -Tunneling No -Undermining/Tunneling No -Circular Undermining No -Wound/Ulcer Outcome Not Healed -Ulcer Cleansing Rinsed/ Irrigated with Saline -Foul Odor after Cleansing No -Bioengineered Tissue No -Debridement - Subq, 1st 20sq cm Yes Pain Scale: 0-10 Numeric Is Patient Pain Free? Yes - Nurse 3 - General Ulcer D/C NN Start: 10/04/20 15:08 Freq: Status: Active Protocol: Activity Type Activity Date Activity User E-Sign Co-Sign Detail Recorded Client Recorded Date Recorded By Document 10/04/20 15:34 [facility] [id number] 10/04/20 15:34 [facility] 10/04/20 15:34 Wound Care Nurse 3 #3- R MED POST LE -Ulcer Cleansing Rinsed/ Irrigated with Saline -Foul Odor after Cleansing No -Primary Dressing Applied Promogran -Primary Dressing Covered/Secured with Dry Gauze & Roll Gauze, Secured with Tape -Promogran 1 Treatment Response Procedure Tolerated Well Pain Scale: 0-10 Numeric Is Patient Pain Free? Yes WC - Visit Discharge Discharge Condition Stable Ambulatory Status Ambulatory Transportation Private Auto Accompanied by mother Wound debrided: R LE just proximal to the insertion of the Achilles tendon Laterality: Right Type of Debridement: Selective debridement Anesthesia Used: 4% Lidocaine Solution Depth: Down to and including healthy tissue Percentage of wound debrided: 80 Instrument Used: #15 blade, Forceps Severity: Fat Layer Exposed Amount of bleeding with debridement: Mild Bleeding Controlled with: Pressure Patient tolerated procedure well Assessment/Plan Assessment: 1. Non- healing wounds of the R posterior thigh and the R posterior calf sustained when a pitbull bit him on 08/22/20. The wound of the calf was sutured in the ER and he was placed on antibiotics. The wound subsequently dehisced and has been non-healing since then despite tx with antibiotics. The wound culture grew Pseudomonas which I suspect represented colonization rather than infection......possibly related to wet to dry dressings. The wound is has less depth and it now has epitelialization present. 2. superficial infection/colonization of the open wound over the calf. Started on antibiotics by PCP and the wound was cultured on 09/12/20. the culture grew Pseudomonas. 3. superficial non-healing puncture wounds (2) over the posterior thigh. other puncture wounds are healing. Edema is less today. the skin is softer and more pliable. 4. folliculitis of the BL LE's from the ankle to the groin with multiple small red pimples/pustules present. None appear to be infected. Good improvement with Hibiclens showers. Plan: 1. Continue the Promogran. 2. continue showering with Hibiclens - I recommend he do this on a routine basis to control the folliculitis. 3. RTC in 2 weeks for recheck. 4. Call the [facility] or me if there is any F/C/S prior to returning to the [facility] Office Visits / Consults: [id number] OV L3 Est
[2020-10-18 14:44] VITALS: BP 116/69; PULSE 81; TEMP 35.7; BMI 25.9
--- NOTE | 2020-10-18 15:01 | PN.PCM_ITS ---
(1) Animal bite wound Status: Inactive Code(s): T14.8XXA - Other injury of unspecified body region, initial encounter (2) Non-healing wound of right lower extremity Status: Resolved Code(s): S81.801A - Unspecified open wound, right lower leg, initial encounter (3) Cellulitis Status: Resolved Qualifiers: Site of cellulitis: extremity Site of cellulitis of extremity: lower extremity Laterality: right Qualified Code(s): L03.115 - Cellulitis of right lower limb Code(s): L03.90 - Cellulitis, unspecified Comment: culture reportedly + for pseudomonas. We did not receive the culture repost from PCP. Type of Wound Date of Service: 10/18/20 Chief Complaint: Non-healing wounds of the R posterior thigh and the R posterior distal calf from a dog bite on 08/22/20. History of Wound: He was bitten by a pit bull on 08/22/20 and sustained wounds on the R posterior thigh and the R posterior calf. They were sutured but, the wound over the calf dehisced and has become infected. They are currently doing wet-to-dry dressings. He was seen by his primary care physician yesterday who started him on antibiotics that include Bactrim and clindamycin. He denies fever/chills/redness of the wound. His mother states that there has been increased yellow discharge recently. He had a culture of the wound taken yesterday at his PCP's office prior to starting the antibiotics. Progress of Wound: Immanuel denies F/C/S. No N/V/D related to the antibiotic. HE has taken a Hibiclens shower 3 times. The folliculitis of the BL LE's is much less. He denies pain of the LLE. Using Promogran on the wound proximal to the ankle on RLE. 10/18/20. Denies F/C/S. His mother states that the wound is closed. - Physical Exam Vital Signs Temp Pulse Resp BP 96.3 F L 81 16 116/69 10/18/20 14:44 10/18/20 14:44 10/04/20 15:11 10/18/20 14:44 Wound Measurements and Assessment WC - Nurse 1 - General Ulcer Measurement Start: 10/04/20 15:08 Freq: Status: Active Protocol: Activity Type Activity Date Activity User E-Sign Co-Sign Detail Recorded Client Recorded Date Recorded By Document 10/18/20 14:44 [id number] 10/18/20 14:47 KR 10/18/20 14:44 Wound Center Nurse 1 [Ulcer Assessment] #3- R MED POST LE -Current Size (cm) - Length 0.2 -Current Size (cm) - Width 2 -Current Size (cm) - Depth 0.1 -Total Square Cm 0.4 -Exudate Amt None Present -Wound Margin Distinct, Outline Attached -Granulation Amt None Present (0 %) -Necrosis Amt None Present (0 %) -Texture (Laura-wound Skin Appearance) Assessed, Scarring -Moisture (Laura-wound Skin Appearance No Abnormality, ) Assessed -Color (Laura-wound Skin Appearance) No Abnormality, Assessed -Temperature (Laura-wound Skin No Abnormality Appearance) (Pt Warm) -Tenderness on Palpation (Laura-wound No Skin Appearance) -Ulcer Cleansing Rinsed/ Irrigated with Saline -Foul Odor after Cleansing No -Anesthetic Used 4% Lidocaine Solution the laceration on the R medial leg is healed. The new skin at the medial aspect of the wound is a fragile. There is very small area that looks as though it could break down easily with any trauma. The folliculitis is much better since he has buck bathing with Hibiclens. Debridement Note Post-Debridement Measurements/Treatment WC - Nurse 2 - General Ulcer CM Notes Start: 10/04/20 15:08 Freq: Status: Active Protocol: Activity Type Activity Date Activity User E-Sign Co-Sign Detail Recorded Client Recorded Date Recorded By Document 10/04/20 15:56 [id number] 10/04/20 15:57 PL 10/04/20 15:56 Wound Center Nurse 2 #3- R MED POST LE -Time 15:23 -Correct Patient Yes -Correct Side, Site, Position Yes -Correct Procedure Yes -Procedure Performed Yes -Type of Procedure Debridement -Clinical Debridement Subcutaneous -Tissue Removed Subcutaneous -Post Debridement (cm) - Length 0.8 -Post Debridement (cm) - Width 3 -Post Debridement (cm) - Depth 0.1 -Total Square (Post) (cm) 2.4 -Area of Debridement (cm) - Length 0.8 -Area of Debridement (cm) - Width 3 -Total Square (Area) (cm) 2.4 -Tunneling No -Undermining/Tunneling No -Circular Undermining No -Wound/Ulcer Outcome Not Healed -Ulcer Cleansing Rinsed/ Irrigated with Saline -Foul Odor after Cleansing No -Bioengineered Tissue No -Debridement - Subq, 1st 20sq cm Yes Pain Scale: 0-10 Numeric Is Patient Pain Free? Yes - Nurse 3 - General Ulcer D/C NN Start: 10/04/20 15:08 Freq: Status: Active Protocol: Activity Type Activity Date Activity User E-Sign Co-Sign Detail Recorded Client Recorded Date Recorded By Document 10/04/20 15:34 [facility] [id number] 10/04/20 15:34 [facility] 10/04/20 15:34 Wound Care Nurse 3 #3- R MED POST LE -Ulcer Cleansing Rinsed/ Irrigated with Saline -Foul Odor after Cleansing No -Primary Dressing Applied Promogran -Primary Dressing Covered/Secured with Dry Gauze & Roll Gauze, Secured with Tape -Promogran 1 Treatment Response Procedure Tolerated Well Pain Scale: 0-10 Numeric Is Patient Pain Free? Yes WC - Visit Discharge Discharge Condition Stable Ambulatory Status Ambulatory Transportation Private Auto Accompanied by mother No debridement was completed today Assessment/Plan Assessment: 1. Non- healing wounds of the R posterior thigh and the R posterior calf sustained when a pitbull bit him on 08/22/20. The wound of the calf was sutured in the ER and he was placed on antibiotics. The wound subsequently dehisced and has been non-healing since then despite tx with antibiotics. The wound culture grew Pseudomonas which I suspect represented colonization rather than infection......possibly related to wet to dry dressings. The wound is has less depth and it now has epitelialization present. 2. superficial infection/colonization of the open wound over the calf. Started on antibiotics by PCP and the wound was cultured on 09/12/20. the culture grew Pseudomonas. 3. superficial non-healing puncture wounds (2) over the posterior thigh. other puncture wounds are healing. Edema is less today. the skin is softer and more pliable. 4. folliculitis of the BL LE's from the ankle to the groin with multiple small red pimples/pustules present. None appear to be infected. Good improvement with Hibiclens showers. 10/18/20. The wound is healed. I reminded Immanuel and his mother that it takes up to a year to completely heal with reorganization of the collagen bundles. I recommended he use a waterproof bandage on the area to help pad/protect it for the next 1-2 weeks. They will call me if the area breaks open again or he has F/C/S. He will continue to bath with Hibiclens to prevent recurrent folliculitis. Plan: 1. Continue the Promogran. 2. continue showering with Hibiclens - I recommend he do this on a routine basis to control the folliculitis. 3. RTC in 2 weeks for recheck. 4. Call the [facility] or me if there is any F/C/S prior to returning to the [facility] Office Visits / Consults: [id number] L2 Est
== END 2020-10-18 15:03 | disposition home or self-care (01) ==
LOC: WC 14:45
PROVIDERS: PCP Nurse Practitioner Primary Care; Referring Provider Nurse Practitioner Primary Care; Visit Provider Internal Medicine
DX: S81.851A Open bite, right lower leg, initial encounter (principal); W54.0XXA Bitten by dog, initial encounter; S71.151A Open bite, right thigh, initial encounter; L73.9 Follicular disorder, unspecified
CPT/HCPCS: 11042; 99212; G0463